=== PATIENT | female | born 1990 ===

== ENCOUNTER 2018-12-03 17:11 | Emergency (ER) | payer OTHER ==
[2018-12-03 17:44] VITALS: RESP 16
--- NOTE | 2018-12-03 17:49 | ED PDOC ---
Arrival/HPI <LynetteArturo - Last Filed: 12/03/18 20:09> - General Historian: Patient - History of Present Illness Narrative History of Present Illness (Text): 12/03/18 18:01 Patient is a 28 y.o female with past medical history of anxiety, depression, breast reduction, "heart burn", who presents to the emergency department complaining of severe burning in the epigastric that radiated up to chest and ears after taking clindamycin. Patient states that developed these symptoms 5 minutes after taking oral clindamycin for the first time, and denied having these symptoms before taking clindamycin. Patient states she had a stomach liposuction on 11/30/2018 at [facility]. Reports she was discharged two days ago and aside from drainage from her surgical sites she has been "doing fine". She denies cough or fevers or chills. Denies calf pain but does report swelling to both her legs over the past day that she has noticed. Denies dizziness or lightheadedness. Denies hemoptysis. Denies vaginal or rectal bleeding. Time/Duration: Prior to Arrival, 1-3 hours Symptom Onset: Sudden Symptom Course: Improving Activities at Onset: Light Context: Home <Earl Ojeda - Last Filed: 12/05/18 09:30> - General Chief Complaint: Chest Pain Past Medical History - Provider Review Nursing Documentation Reviewed: Yes - Cardiac Hx Cardiac Disorders: No - Pulmonary Hx Respiratory Disorders: No - Neurological Hx Neurological Disorder: No - HEENT Hx HEENT Disorder: No - Renal Hx Renal Disorder: No - Endocrine/Metabolic Hx Endocrine Disorders: No - Hematological/Oncological Hx Blood Disorders: No - Integumentary Hx Dermatological Disorder: No - Musculoskeletal/Rheumatological Hx Musculoskeletal Disorders: No - Gastrointestinal Hx Gastrointestinal Disorders: Yes Hx Gastroesophageal Reflux: Yes - Genitourinary/Gynecological Hx Genitourinary Disorders: No - Psychiatric Hx Psychophysiologic Disorder: Yes Hx Anxiety: Yes Hx Depression: Yes Hx Substance Use: No - Surgical History Other/Comment: LIPOSUCTION, BREAST REDUCTION - Anesthesia Hx Anesthesia: Yes Hx Anesthesia Reactions: No Hx Malignant Hyperthermia: No <Earl Ojeda - Last Filed: 12/05/18 09:30> Family/Social History - Physician Review Nursing Documentation Reviewed: Yes Family/Social History: Unknown Family HX Smoking Status: Never Smoked Hx Alcohol Use: No Hx Substance Use: No <Earl Ojeda - Last Filed: 12/05/18 09:30> Allergies/Home Meds <Arturo Ojeda - Last Filed: 12/03/18 20:09> <Earl Ojeda - Last Filed: 12/05/18 09:30> Allergies/Adverse Reactions: Allergies No Known Allergies Allergy (Verified 12/03/18 17:35) Home Medications: Home Meds Medication Instructions Recorded Confirmed Clindamycin [Cleocin] 300 mg PO BID 12/03/18 12/03/18 Escitalopram Oxalate [Lexapro] 5 mg PO DAILY 12/03/18 12/03/18 Omeprazole 20 mg PO DAILY 12/03/18 12/03/18 Review of Systems - Review of Systems Constitutional: absent: Fevers Eyes: absent: Vision Changes ENT: absent: Hearing Changes, Sore Throat, Rhinorrhea, Sinus Congestion Respiratory: SOB. absent: Cough, Wheezing Cardiovascular: Chest Pain, Palpitations. absent: Edema, Calf Pain, OLSON, Orthopnea, Syncope Gastrointestinal: absent: Abdominal Pain, Nausea, Vomiting Genitourinary Female: absent: Dysuria, Frequency, Vaginal Bleeding Musculoskeletal: absent: Back Pain Skin: Other (drainage from surgical sites) Neurological: Dizziness. absent: Headache, Focal Weakness Endocrine: absent: Polyuria Hemo/Lymphatic: absent: Easy Bleeding Psychiatric: Anxiety. absent: Depression, Suicidal Ideation <Earl Ojeda - Last Filed: 12/05/18 09:30> Physical Exam Vital Signs Temp Pulse Resp BP Pulse Ox 12/03/18 19:29 98.9 F 12/03/18 18:58 103 H 16 107/61 99 12/03/18 17:37 100.1 F H 115 H 16 126/75 100 <Arturo Ojeda - Last Filed: 12/03/18 20:09> - Physical Exam Narrative Physical Exam (Text): 12/03/18 17:46 Head: Atraumatic. Normocephalic. Eyes: PERRL. EOMI. Conjunctivae are not pale. ENT: Mucous membranes are moist and intact. Oropharynx is clear and symmetric. Neck: Supple. Full ROM. No JVD. No lymphadenopathy. Cardiovascular: Tachycardic. No pathologic murmur noted. Regular. Pulmonary/Chest: No evidence of respiratory distress. Clear to auscultation bilaterally. No wheezing, rales or rhonchi. Abdominal: No peritoneal signs. Binder is present. There is clear drainage from incisional sites, no active bleeding. Back: No CVA tenderness. Lower surgical site with no active bleeding, no surrounding erythema or pus. Extremities: Bilateral nonpitting edema. No calf tenderness. No clubbing or cyanosis. Skin: Skin is warm and dry. No erythema or purulent drainage noted. Neurological: Alert, awake, and oriented. Motor and sensory exam intact. No slurred speech. No focal motor or sensory deficits. No meningeal signs. Psychiatric: Good eye contact. Normal interaction, affect, and behavior. Slightly anxious. Rectal: no gross bleeding Vital Signs Reviewed: Yes Vital Signs Temp Pulse Resp BP Pulse Ox 12/03/18 17:37 100.1 F H 115 H 16 126/75 100 Temperature: Febrile Pulse: Tachycardic Appearance: Positive for: Non-Toxic Pain Distress: Mild Mental Status: Positive for: Alert and Oriented X 3 <Earl Ojeda - Last Filed: 12/05/18 09:30> Medical Decision Making ED Course and Treatment: 12/03/18 20:09 Patient signed out to me by Dr. Ojeda. Pending CT - Lab Interpretations Lab Results: pO2 24 mm/Hg (30-55) L 12/03/18 18:20 VBG pH 7.42 (7.32-7.43) 12/03/18 18:20 VBG pCO2 39.0 (40-60) L 12/03/18 18:20 VBG HCO3 25.3 mmol/l (21-28) 12/03/18 18:20 VBG Total CO2 26.5 mmol.L (22-28) 12/03/18 18:20 VBG O2 Sat (Calc) 53.3 % (40-65) 12/03/18 18:20 VBG Base Excess 0.8 mmol/L (0.0-2.0) 12/03/18 18:20 VBG Potassium 3.6 mmol/L (3.6-5.2) 12/03/18 18:20 Sodium 138.0 mmol/L (132-148) 12/03/18 18:20 Chloride 107.0 mmol/L (98-107) 12/03/18 18:20 Glucose 92 mg/dl (65-105) 12/03/18 18:20 Lactate 1.0 mmol/L (0.7-2.1) 12/03/18 18:20 FiO2 21.0 % 12/03/18 18:20 PT 12.4 SECONDS (9.4-12.5) 12/03/18 18:00 INR 1.12 12/03/18 18:00 APTT 27.9 Seconds (26.9-38.3) 12/03/18 18:00 D-Dimer, Quantitative 539 ng/mlDDU (0-243) H 12/03/18 18:00 Troponin I < 0.01 ng/mL 12/03/18 18:00 Total Bilirubin 0.4 mg/dL (0.2-1.3) 12/03/18 18:00 AST 30 U/L (14-36) 12/03/18 18:00 ALT 36 U/L (7-56) 12/03/18 18:00 Alkaline Phosphatase 76 U/L (38-126) 12/03/18 18:00 Total Protein 6.2 g/dL (5.8-8.3) 12/03/18 18:00 Albumin 3.1 g/dL (3.0-4.8) 12/03/18 18:00 Globulin 3.1 gm/dL 12/03/18 18:00 Albumin/Globulin Ratio 1.0 (1.1-1.8) L 12/03/18 18:00 Urine Color Yellow (YELLOW) 12/03/18 17:50 Urine Appearance Clear (CLEAR) 12/03/18 17:50 Urine pH 7.0 (4.7-8.0) 12/03/18 17:50 Ur Specific [place] 1.010 (1.005-1.035) 12/03/18 17:50 Urine Protein Negative mg/dL (<30 mg/dL) 12/03/18 17:50 Urine Glucose (UA) Negative mg/dL (NEGATIVE) 12/03/18 17:50 Urine Ketones Trace mg/dL (NEGATIVE) H 12/03/18 17:50 Urine Blood Negative (NEGATIVE) 12/03/18 17:50 Urine Nitrate Negative (NEGATIVE) 12/03/18 17:50 Urine Bilirubin Negative (NEGATIVE) 12/03/18 17:50 Urine Urobilinogen 0.2 E.U./dL (<1 E.U./dL) 12/03/18 17:50 Ur Leukocyte Esterase Negative Farhan/uL (NEGATIVE) 12/03/18 17:50 Urine HCG, Qual Negative (NEGATIVE) 12/03/18 17:50 Urine HCG, Qual Negative (NEGATIVE) 12/03/18 17:50 - RAD Interpretation Radiology Orders: 12/03/18 17:45 CHEST PORTABLE [RAD] Stat 12/03/18 17:50 DUPLEX LOWER EXTRM VEIN BILAT [US] Stat 12/03/18 19:43 ANGIO CHEST PE PROTOCOL [CT] Stat 12/03/18 19:45 ABD & PELVIS IV CONTRAST ONLY [CT] Stat - Medication Orders Current Medication Orders: Sodium Chloride (Sodium Chloride 0.9%) 1,000 mls @ 100 mls/hr IV .Q10H NESSA Last Admin: 12/03/18 17:58 Dose: 100 mls/hr eMAR Start Stop Document 12/03/18 17:58 MIRELA (Rec: 12/03/18 17:58 [place]RELA [place] [id number]) Intravenous Solution Start Date 12/03/18 Start Time 17:58 Discontinued Medications Pantoprazole Sodium (Protonix Inj) 40 mg IVP ONCE STA Stop: 12/03/18 17:47 Last Admin: 12/03/18 17:59 Dose: 40 mg IVP Administration Document 12/03/18 17:59 MIRELA (Rec: 12/03/18 17:59 MIRELA [place] [id number]) Charges for Administration # of IVP Administrations 1 <Arturo Ojeda - Last Filed: 12/03/18 20:09> ED Course and Treatment: 12/03/18 19:16 Patient on initial evaluation is not hypoxic. Lungs clear. Symptoms reported as "burning" occurred immediately after taking Clindamycin for the first time. No wheezing or angioedema noted. With observation, heart rate improved from 120 to 104. She denies shortness of breath and is ambulatory on re-evaluation. She is found to have oral temperature with slightly elevated WBC. Hgb found to be 8.0. With patient permission, I discussed case with her [place] surgeon Dr. Guido Dalton , and reviewed her current labs and presentation. He states her hgb was not previously this low when they had evaluated her. Given fever, assoicate with low hgb, will obtain CT abdomen/pelvis. Will also obtain Chest CT PE protocol. Currently patient denies chest pain or abdominal pain. Initial lactate unremarkable. Will continue to monitor. CT ordered and pending. 12/03/18 20:10 Labs and treatment plan reviewed with patient. Treatment plan reviewed with patient. Case endorsed to Dr. Arturo Ojeda. She states chest pain has resolved. She states she has had IV contrast in past with no adverse effect. I have reviewed transfer of care and treatment plan to patient and potential for admission pending re-evaluation and CT results. 12/05/18 09:27 - EKG Interpretation EKG Interpretation (Text): 12/03/18 19:20 EKG at 17:21 sinus tachycardia rate of 112, no acute st elevations Interpreted by ED Physician: Yes Type: 12 lead EKG <Earl Ojeda - Last Filed: 12/05/18 09:30> - Scribe Statement The provider has reviewed the documentation as recorded by the Scribe Peyton abernathy All medical record entries made by the Scribe were at my direction and personally dictated by me. I have reviewed the chart and agree that the record accurately reflects my personal performance of the history, physical exam, medical decision making, and the department course for this patient. I have also personally directed, reviewed, and agree with the discharge instructions and disposition. <Earl Ojeda - Last Filed: 12/05/18 09:30> Disposition/Present on Arrival <Arturo Ojeda - Last Filed: 12/03/18 20:09> - Present on Arrival Any Indicators Present on Arrival: No History of DVT/PE: No History of Uncontrolled Diabetes: No Urinary Catheter: No History of Decub. Ulcer: No History Surgical Site Infection Following: None - Disposition Have Diagnosis and Disposition been Completed?: Yes Disposition Time: 20:00 Patient Plan: Observation <Earl Ojeda - Last Filed: 12/05/18 09:30> - Disposition Diagnosis: Anemia, Chest pain Disposition: AGAINST MEDICAL ADVICE Condition: STABLE Discharge Instructions (ExitCare): Chest Pain (ED) Forms: [employer] ([place])
[2018-12-03] MEDS ORDERED: Sodium Chloride 0.9% 1,000 ML IV SCH (18:00)
[2018-12-03 18:07] LABS: URINE BILIRUBIN NEGATIVE (NEGATIVE); URINE BLOOD NEGATIVE (NEGATIVE); URINE GLUCOSE (UA) NEGATIVE (NEGATIVE); URINE LEUKOCYTE ESTERASE NEGATIVE Leu/uL (NEGATIVE); URINE PROTEIN NEGATIVE mg/dL (<30 mg/dL); URINE UROBILINOGEN 0.2 E.U./dL (<1 E.U./dL)
[2018-12-03 18:09] LABS: URINE APPEARANCE CLEAR (CLEAR); URINE COLOR YELLOW (YELLOW)
[2018-12-03 18:27] LABS: VENOUS BLOOD GAS BASE EXCESS 0.8 mmol/L (0.0-2.0); VENOUS BLOOD GAS PO2 24 mm/Hg (30-55); VENOUS BLOOD PH 7.42 (7.32-7.43)
[2018-12-03 18:41] LABS: BASO # 0.03 K/mm3 (0.0-2.0); BASO % 0.2 % (0.0-3.0); EOS # 0.2 (0.0-0.7); EOS % 1.5 % (1.5-5.0); LYMPH # 2.4 (1.2-3.4); MEAN CELL VOLUME 78.8 fl (80.0-105.0); MEAN CORPUSCULAR HEMOGLOBIN 24.9 pg (25.0-35.0); MEAN CORPUSCULAR HGB CONC 31.6 g/dl (31.0-37.0); MEAN PLATELET VOLUME 10.6 fl (7.0-11.0); MONO # 0.6 (0.1-0.6); MONO % 4.3 % (1.0-6.0); RBC 3.21 10^6/uL (3.5-6.1); RED CELL DISTRIBUTION WIDTH 19.5 % (11.5-14.5); WHITE BLOOD COUNT 13.1 10^3/uL (4.5-11.0)
[2018-12-03 18:46] LABS: INR 1.12; PARTIAL THROMBOPLASTIN TIME 27.9 Seconds (26.9-38.3); PROTHROMBIN TIME 12.4 SECONDS (9.4-12.5)
[2018-12-03 18:48] LABS: ALBUMIN 3.1 g/dL (3.0-4.8); ALT/SGPT 36 U/L (7-56); AST/SGOT 30 U/L (14-36); BLOOD UREA NITROGEN 5 mg/dL (7-21); CALCIUM 8.4 mg/dL (8.4-10.5); GFR NON-AFRICAN AMERICAN > 60
[2018-12-03 18:58] VITALS: O2SAT 99
[2018-12-03 18:59] LABS: TROPONIN I < 0.01 ng/mL
[2018-12-03 19:29] VITALS: TEMP 98.9
--- NOTE | 2018-12-03 20:22 | ED PDOC ---
Physical Exam Vital Signs Temp Pulse Resp BP Pulse Ox 12/03/18 19:29 98.9 F 12/03/18 18:58 103 H 16 107/61 99 12/03/18 17:37 100.1 F H 115 H 16 126/75 100 - Systems Exam Head: Present: Atraumatic Pupils: Present: PERRL Extroacular Muscles: Present: EOMI Conjunctiva: Present: Normal Neck: Present: Normal Range of Motion. No: Meningeal Signs, MIDLINE TENDERNESS Respiratory/Chest: Present: Clear to Auscultation Cardiovascular: No: Murmurs Back: Present: Normal Inspection. No: CVA Tenderness, Midline Tenderness Neurological: Present: GCS=15, CN II-XII Intact, Speech Normal, Motor Func Grossly Intact, Normal Sensory Function Skin: Present: Warm, Dry Psychiatric: Present: Alert, Oriented x 3, Normal Insight, Normal Concentration, Normal Affect, Normal Mood. No: Anxious, Agitated, Suicidal Ideation Medical Decision Making ED Course and Treatment: 12/03/18 20:22 Patient signed out to me by Dr Jim. Hgb drop from 12-8, pt denies any dark or bloody stool however. No fall or trauma. Recent liposuction w/ clinda ingestion followed by burning epigastric pain. Pending CT. 22:[address] results pt in NAD EXAM: CTA Chest with Intravenous Contrast for Pulmonary Embolism Electronically signed on Dec 03, 2018 10:33:11 PM EDT by: José Luis Rodriguez M.D. IMPRESSION: No evidence for large or central pulmonary embolism. Motion artifact limits evaluation of smaller branches. EXAM : CT of the abdomen and pelvis with contrast Electronically signed on Dec 03, 2018 10:32:56 PM EDT by: José Luis Rodriguez M.D. Impression: 1. No focal intra-abdominal abnormality appreciated. 2. Circumferential infiltrative changes within the subcutaneous tissues, of uncertain clinical significance. Follow-up is recommended as clinically indicated 12/03/18 22:42 Patient wants to leave against medical advice. Pt AOx3, no SI/HI depression or anxiety per pt. Understands possible or disablity if leaving without further workup. Pt noted understanding re-iterated risks to me, given good capacity, pt signed out AMA. Offered Patient antibiotic, but patient refuses and states she will followup with her PMD and get antibiotics from him. Patient knows to discontinue the clindamycin. Leaving Against Medical Advice (AMA): The patient is choosing to leave against medical advice. I have personally explained to the patient that choosing to do so may result in permanent bodily harm, disability, or . I have discussed at great length that without further evaluation and monitoring there may be unforeseen circumstances and/or deterioration causing permanent bodily harm or as a result of their choice. The patient is alert, oriented, and shows the mental capacity to make clear decisions regarding the patients health care at this time. The patient continues to wish to leave against medical advice. In light of the patients decision to leave against medical advice, follow-up has been arranged and the patient is aware of the importance to following up as instructed. The patient has been advised that they should return to the emergency room immediately if they change their mind at any time, or if their c ondition begins to change or worsen in any way. - Lab Interpretations Lab Results: pO2 24 mm/Hg (30-55) L 12/03/18 18:20 VBG pH 7.42 (7.32-7.43) 12/03/18 18:20 VBG pCO2 39.0 (40-60) L 12/03/18 18:20 VBG HCO3 25.3 mmol/l (21-28) 12/03/18 18:20 VBG Total CO2 26.5 mmol.L (22-28) 12/03/18 18:20 VBG O2 Sat (Calc) 53.3 % (40-65) 12/03/18 18:20 VBG Base Excess 0.8 mmol/L (0.0-2.0) 12/03/18 18:20 VBG Potassium 3.6 mmol/L (3.6-5.2) 12/03/18 18:20 Sodium 138.0 mmol/L (132-148) 12/03/18 18:20 Chloride 107.0 mmol/L (98-107) 12/03/18 18:20 Glucose 92 mg/dl (65-105) 12/03/18 18:20 Lactate 1.0 mmol/L (0.7-2.1) 12/03/18 18:20 FiO2 21.0 % 12/03/18 18:20 PT 12.4 SECONDS (9.4-12.5) 12/03/18 18:00 INR 1.12 12/03/18 18:00 APTT 27.9 Seconds (26.9-38.3) 12/03/18 18:00 D-Dimer, Quantitative 539 ng/mlDDU (0-243) H 12/03/18 18:00 Troponin I < 0.01 ng/mL 12/03/18 18:00 Total Bilirubin 0.4 mg/dL (0.2-1.3) 12/03/18 18:00 AST 30 U/L (14-36) 12/03/18 18:00 ALT 36 U/L (7-56) 12/03/18 18:00 Alkaline Phosphatase 76 U/L (38-126) 12/03/18 18:00 Total Protein 6.2 g/dL (5.8-8.3) 12/03/18 18:00 Albumin 3.1 g/dL (3.0-4.8) 12/03/18 18:00 Globulin 3.1 gm/dL 12/03/18 18:00 Albumin/Globulin Ratio 1.0 (1.1-1.8) L 12/03/18 18:00 Urine Color Yellow (YELLOW) 12/03/18 17:50 Urine Appearance Clear (CLEAR) 12/03/18 17:50 Urine pH 7.0 (4.7-8.0) 12/03/18 17:50 Ur Specific [place] 1.010 (1.005-1.035) 12/03/18 17:50 Urine Protein Negative mg/dL (<30 mg/dL) 12/03/18 17:50 Urine Glucose (UA) Negative mg/dL (NEGATIVE) 12/03/18 17:50 Urine Ketones Trace mg/dL (NEGATIVE) H 12/03/18 17:50 Urine Blood Negative (NEGATIVE) 12/03/18 17:50 Urine Nitrate Negative (NEGATIVE) 12/03/18 17:50 Urine Bilirubin Negative (NEGATIVE) 12/03/18 17:50 Urine Urobilinogen 0.2 E.U./dL (<1 E.U./dL) 12/03/18 17:50 Ur Leukocyte Esterase Negative Farhan/uL (NEGATIVE) 12/03/18 17:50 Urine HCG, Qual Negative (NEGATIVE) 12/03/18 17:50 Urine HCG, Qual Negative (NEGATIVE) 12/03/18 17:50 - RAD Interpretation Radiology Orders: 12/03/18 17:45 CHEST PORTABLE [RAD] Stat 12/03/18 17:50 DUPLEX LOWER EXTRM VEIN BILAT [US] Stat 12/03/18 19:43 ANGIO CHEST PE PROTOCOL [CT] Stat 12/03/18 19:45 ABD & PELVIS IV CONTRAST ONLY [CT] Stat - Medication Orders Current Medication Orders: Sodium Chloride (Sodium Chloride 0.9%) 1,000 mls @ 100 mls/hr IV .Q10H NESSA Last Admin: 12/03/18 17:58 Dose: 100 mls/hr eMAR Start Stop Document 12/03/18 17:58 MIRELA (Rec: 12/03/18 17:58 MIRELA [place] [id number]) Intravenous Solution Start Date 12/03/18 Start Time 17:58 Discontinued Medications Pantoprazole Sodium (Protonix Inj) 40 mg IVP ONCE STA Stop: 12/03/18 17:47 Last Admin: 12/03/18 17:59 Dose: 40 mg IVP Administration Document 12/03/18 17:59 MIRELA (Rec: 12/03/18 17:59 MIRELA [place] [id number]) Charges for Administration # of IVP Administrations 1 Disposition/Present on Arrival - Present on Arrival Any Indicators Present on Arrival: No History of DVT/PE: No History of Uncontrolled Diabetes: No Urinary Catheter: No History of Decub. Ulcer: No History Surgical Site Infection Following: None - Disposition Have Diagnosis and Disposition been Completed?: Yes Diagnosis: Anemia, Chest pain Disposition: AGAINST MEDICAL ADVICE Disposition Time: 22:48 Condition: STABLE Discharge Instructions (ExitCare): Chest Pain (ED) Forms: [employer] ([place]er)
[2018-12-03 21:25] VITALS: BP 107/56; PULSE 102
--- NOTE | 2018-12-04 09:14 | RAD ---
Date of service: 12/03/2018 HISTORY: chest pain COMPARISON: No prior. TECHNIQUE: 1 view obtained. FINDINGS: LUNGS: No active pulmonary disease. PLEURA: No significant pleural effusion identified, no pneumothorax apparent. CARDIOVASCULAR: No aortic atherosclerotic calcification present. Normal cardiac size. No pulmonary vascular congestion. OSSEOUS STRUCTURES: No significant abnormalities. VISUALIZED UPPER ABDOMEN: Normal. OTHER FINDINGS: None. IMPRESSION: No active disease.
--- NOTE | 2018-12-04 09:43 | CT ---
Date of service: 12/03/2018 PROCEDURE: CT Chest with contrast (Pulmonary Angiogram) HISTORY: r/o PE COMPARISON: None available. TECHNIQUE: Axial computed tomography images were obtained of the chest in the pulmonary arterial phase of enhancement. Coronal and sagittal reformatted images were created and reviewed. Intravenous contrast dose: 150 mL Omnipaque 350 Radiation dose: Total exam DLP = 465.23 mGy-cm. This CT exam was performed using one or more of the following dose reduction techniques: Automated exposure control, adjustment of the mA and/or kV according to patient size, and/or use of iterative reconstruction technique. FINDINGS: PULMONARY ARTERIES: Unremarkable. No pulmonary embolism. AORTA: No acute findings. Common origin of the brachiocephalic and left common carotid arteries, normal variant. No thoracic aortic aneurysm. No aortic atherosclerotic calcification or mural plaque present. LUNGS: Unremarkable. No nodule, mass or pulmonary consolidation. PLEURAL SPACES: Unremarkable. No effusion or pneumothorax. HEART: Unremarkable. No cardiomegaly. No significant pericardial effusion. LYMPH NODES: No lymphadenopathy. BONES, CHEST WALL: Unremarkable. No fracture or destructive lesion OTHER FINDINGS: Unremarkable. IMPRESSION: Unremarkable CT pulmonary angiogram. No pulmonary embolus.
--- NOTE | 2018-12-04 09:46 | CT ---
Date of service: 12/03/2018 PROCEDURE: CT Abdomen and Pelvis with contrast HISTORY: post surgical/lip with low hgb COMPARISON: None. TECHNIQUE: Contrast dose: 150 mL Omnipaque 350 Radiation dose: Total exam DLP = 1094.04 mGy-cm. This CT exam was performed using one or more of the following dose reduction techniques: Automated exposure control, adjustment of the mA and/or kV according to patient size, and/or use of iterative reconstruction technique. FINDINGS: LOWER THORAX: Unremarkable. LIVER: Unremarkable. No gross lesion or ductal dilatation. GALLBLADDER AND BILE DUCTS: Unremarkable. PANCREAS: Unremarkable. No gross lesion or ductal dilatation. SPLEEN: Unremarkable. ADRENALS: Unremarkable. No mass. KIDNEYS AND URETERS: Imaged in excretory phase with normal CT urogram appearance. No hydronephrosis. No solid mass. VASCULATURE: Unremarkable. No aortic aneurysm. No aortic atherosclerotic calcification or mural plaque present. BOWEL: Unremarkable. No obstruction. No gross mural thickening. APPENDIX: Normal appendix. PERITONEUM: Unremarkable. No free fluid. No free air. LYMPH NODES: Unremarkable. No enlarged lymph nodes. BLADDER: Unremarkable. REPRODUCTIVE: Dominant right ovarian follicle. Trace pelvic fluid, likely physiologic. BONES: No acute fracture. OTHER FINDINGS: Small focus of air in the left breast soft tissues. Diffuse nonspecific stranding in the body wall subcutaneous tissues IMPRESSION: No acute abdominal pelvic pathology. Small focus of air in the left breast soft tissues, possibly postsurgical. Diffuse nonspecific stranding in the body wall subcutaneous tissues.
--- NOTE | 2018-12-04 10:12 | CARD ---
APPROVED REPORT Date of service: 12/03/2018 EKG Measurement Heart [id number] <Conclusion> Sinus tachycardia Possible Anterior infarct, age undetermined Abnormal ECG
--- NOTE | 2018-12-05 09:40 | US ---
HISTORY: Leg pain and swelling. Evaluate for DVT PHYSICIAN(S): Jori Huerta MD. TECHNIQUE: Duplex sonography and color-flow Doppler with graded compression were used to evaluate the deep venous systems of both lower extremities. FINDINGS: The visualized deep venous systems of both lower extremities are sonographically normal and compressible. Normal wave forms and augmentation are seen. There is no sonographic evidence for deep venous thrombosis in the visualized segments of both lower extremities. IMPRESSION: No sonographic evidence for deep venous thrombosis in the visualized segments of both lower extremities.
== END 2018-12-03 22:49 | disposition left against medical advice (07) ==
LOC: MERGE 17:11 → ED 17:11
DX: R07.9 Chest pain, unspecified (principal); D64.9 Anemia, unspecified; K21.9 Gastro-esophageal reflux disease without esophagitis
CPT/HCPCS: 71045; 71275; 74177; 80053; 81003; 81025; 82550; 82803; 83615; 84484; 84703; 85025; 85378; 85610; 85730; 86850; 86900; 87040; 87086; 87804; 93005; 93970; 96361; 96374; 99283; C9113; J7030; Q9967